=== PATIENT | female | born 1965 | race Caucasian/White ===

== ENCOUNTER 2017-02-20 02:25 | Emergency (ER) | payer OTHER ==
[~2017-02-20] VITALS: Ht 162.6 cm; Wt 64.9 kg
[2017-02-20 03:55] VITALS: BP 132/85
== END 2017-02-20 05:24 | disposition home or self-care (01) ==
LOC: ED 05:17
DX: F10.120 Alcohol abuse with intoxication, uncomplicated (principal)
CPT/HCPCS: 99283